=== PATIENT | female | born 1970 | race Caucasian/White ===

== ENCOUNTER 2020-08-05 15:55 | Outpatient (CLI) | payer OTHER, SELFPAY ==
--- NOTE | 2020-08-05 | MR_ITS ---
WS: [id number] MRI RIGHT KNEE NONCONTRAST TECHNIQUE: Axial PD, coronal PD fat sat, coronal PD, sagittal PD, and sagittal PD fat-sat images obta ined. CLINICAL INFORMATION: PAIN SWELLING OF RIGHT KNEE COMPARISON: None. FINDINGS: Distal quadriceps and patella tendons are intact. Normal anterior and posterior cruciate ligaments. S mall suprapatellar effusion. Mild chronic thinning of the medial and lateral meniscus. Chronic intras ubstance signal abnormality involving the medial meniscus. Small horizontal tear involving the printing table hand ior horn medial meniscus extending to the articular surface. Mild chondromalacia patella. No subchondral edema. Small popliteal cyst measuring 1.8 x 0.7 x 3.1 CM. Mild joint space narrowing involving the medial and lateral joint compartments. No edema in the dista l femoral condyles and tibial plateau. Medial and lateral collateral ligaments appear intact. MR/MR knee RT wo con* [id number] IMPRESSION: 1. Anterior and posterior cruciate ligaments are intact. 2. Tiny suprapatellar effusion. 3. Small horizontal tear involving the posterior horn medial meniscus extendin g to the articular surface. 4. Small popliteal cyst as described above. 5. Mild chondromalacia patella. No subchondral edema.
== END 2020-08-05 15:56 | disposition home or self-care (01) ==
LOC: RADSHAW 15:56
PROVIDERS: PCP Family Medicine; Visit Provider Family Medicine
DX: M79.89 Other specified soft tissue disorders (principal); M25.461 Effusion, right knee; S83.241A Other tear of medial meniscus, current injury, right knee, initial encounter; X58.XXXA Exposure to other specified factors, initial encounter; M71.21 Synovial cyst of popliteal space [Baker], right knee; M22.41 Chondromalacia patellae, right knee
CPT/HCPCS: 73721

== ENCOUNTER 2020-11-06 08:43 | Outpatient (CLI) | payer OTHER, SELFPAY ==
--- NOTE | 2020-11-06 | XR_ITS ---
NOTE: Report was unsigned for reason: Order was edited. Original Signature date and time was: 11/06/20 @ 0934 WS: [id number] PROCEDURE: XR chest 3V [id number] CLINICAL INFORMATION: COUGH COMPARISON: None. FINDINGS: Heart: Normal cardiac silhouette. Lungs: Mild interstitial thickening in the right lower lobe. Slight patchy infiltrates in the right lower lobe medially and posterior. Recommend correlation for pneumonia. No focal consolidation. Bones: Normal visualized bony structures. [facility] XR/XR chest 2V* [id number] IMPRESSION: Slight patchy infiltrate in right lower lobe medially suspicious for pneumonia. No focal consolidation.
[2020-11-06 09:36] LABS: D Dimer 1.15 ug/mIFEU (0-0.59)
== END 2020-11-06 08:44 | disposition home or self-care (01) ==
LOC: RADOUTREAD 09:07
PROVIDERS: PCP Family Medicine; Visit Provider Family Medicine
DX: R05 Cough (principal)
CPT/HCPCS: 85378

== ENCOUNTER 2020-11-06 14:55 | Outpatient (CLI) | payer OTHER, SELFPAY ==
--- NOTE | 2020-11-06 15:01 | CT_ITS ---
WS: [id number] CT CHEST ANGIOGRAPHY WITH REFORMATS HISTORY: FATIGUE TECHNIQUE: Contiguous axial images are obtained through the chest during arterial injection of intrav enous contrast. Images are reconstructed to evaluate the pulmonary arteries. MIP imaging also reviewe d. All CT scans at [facility] use at least one of these dose optimization techniques: aut omated exposure control; mA and/or kV adjustment per patient size (includes targeted exams where dose is matched to clinical indication); or iterative reconstruction. CONTRAST: Omnipaque 300; 95 mL IV. DLP: 487.55 mGy.cm COMPARISON: None available. Very good opacification of the pulmonary arteries. There are no filling defects. Normal size pulmonar y artery. Mild atherosclerosis aorta with no aneurysm. Mild enlargement of the LEFT heart chambers. N o pericardial or pleural effusions. Bilateral, multilobar peripheral and predominantly bibasilar opacifications. Majority of these opacif ications are ground glass with increasing consolidation at the RIGHT lung base. No pneumothorax. Medi astinal and hilar lymphoid tissue. RIGHT hilar prominent lymph node tissue measures up to 1.3 cm. No abnormality noted in the upper abdomen. CT/CT angio chest PE protcl [id number] IMPRESSION: 1. No pulmonary embolism. 2. Multilobar opacifications, combination of groundglass and dense consolidati ons. Pneumonitis is likely. Consider Covid 19. 3. Indeterminate but prominent RIGHT hilar lymph nodes.
[2020-11-06] MEDS: iohexol 350 mg/mL 100 mL Btl IV (15:18)
== END 2020-11-06 14:56 | disposition home or self-care (01) ==
LOC: RAD 14:59
PROVIDERS: PCP Family Medicine; Visit Provider Nurse Practitioner Family
DX: R53.83 Other fatigue (principal)
CPT/HCPCS: 71275